=== PATIENT | male | born 1985 | race African-American/Black ===

== ENCOUNTER 2017-12-25 06:02 | Emergency (ER) | payer MEDICAID ==
[~2017-12-25] VITALS: Ht 182.9 cm; Wt 99.8 kg
[2017-12-25] MEDS ORDERED: NKM (06:11)
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
[2017-12-25] MEDS ORDERED: Norco 5mg/325mg tab ORAL ONE (06:45)
[2017-12-25] MEDS ORDERED: NORCO 5-325 TA1 EACH ORAL (06:45)
[2017-12-25] MEDS ORDERED: IBUPROFEN600 MG ORAL (06:45)
[2017-12-25 07:08] VITALS: BP 137/80
--- NOTE | 2017-12-25 11:20 | Diagnostic Imaging Report ---
Indication: Pain Comparison: None Findings: 3 views of the right forefoot obtained demonstrating a comminuted intra-articular fracture of the base of the first distal phalange. IMPRESSION: Acute fracture of the first distal phalange
== END 2017-12-25 07:10 | disposition home or self-care (01) ==
LOC: EMR 06:16
DX: S92.421A Displaced fracture of distal phalanx of right great toe, initial encounter for closed fracture (principal); Z88.0 Allergy status to penicillin; W20.8XXA Other cause of strike by thrown, projected or falling object, initial encounter; Y93.02 Activity, running; Y92.9 Unspecified place or not applicable
CPT/HCPCS: 99284